=== PATIENT | female | born 1970 | race Caucasian/White ===

== ENCOUNTER 2020-02-19 17:08 | Emergency (ER) | payer BC ==
[~2020-02-19] VITALS: Ht 162.6 cm; Wt 94.8 kg
[2020-02-19] MEDS ORDERED: CYMBALTA60 MG PO (17:34)
[2020-02-19] MEDS ORDERED: LISINOPRIL-HCT1 EAC1 PO (17:34)
[2020-02-19] MEDS ORDERED: TOPAMAX100 MG PO (17:34)
[2020-02-19] MEDS ORDERED: ROBAXIN 750 MG750 MG PO (17:35)
[2020-02-19] MEDS ORDERED: OZEMPIC1 MG/0.75 SUBQ (17:47)
[2020-02-19 18:27] LABS: ABSOLUTE EOSINOPHILS 0.1 thou/uL (0.0-0.7); ABSOLUTE MONOCYTES 0.7 thou/uL (0.0-1.2); ABSOLUTE NEUTROPHILS 6.6 thou/uL (1.6-8.1); BASOPHILS 0.4 %; EOSINOPHILS 0.8 %; HEMATOCRIT 42.2 % (37.0-47.0); HEMOGLOBIN 14.2 gm/dL (12.0-15.0); MCH 29.6 pg (26.0-34.0); MCHC 33.6 g/dL (28.0-37.0); MCV 88.1 fL (80.0-100.0); MONOCYTES 6.7 %; MPV 7.4 fl. (7.2-11.1); NUCLEATED RBCS 0 /100WBC; PLATELET COUNT* 264 thou/uL (150-400); POLYS 63.1 %; RBC 4.79 mil/uL (4.20-5.00); RDW-CV 13.3 % (10.5-14.5); WBC 10.4 thou/uL (4.0-11.0)
[2020-02-19 18:33] LABS: INFLUENZA A ANTIGEN Negative (Negative); INFLUENZA B ANTIGEN Negative (Negative)
[2020-02-19 18:34] LABS: CALCIUM 9.6 mg/dL (8.5-10.1); CREATININE 0.6 mg/dL (0.6-1.3); POTASSIUM 3.4 mmol/L (3.5-5.1)
[2020-02-19 18:36] LABS: URIC ACID* 6.1 mg/dL (2.6-7.2)
[2020-02-19 19:32] LABS: ESR (SEDRATE) 14 mm/hr (0-20)
[2020-02-19] MEDS ORDERED: NORCO 5-325 TA1 EAC2 PO (19:47)
[2020-02-19] MEDS ORDERED: IBUPROFEN 800800 M1 PO (19:47)
[2020-02-19 20:01] VITALS: BP 133/81
== END 2020-02-19 20:02 | disposition home or self-care (01) ==
LOC: M.ERS 17:08
PROVIDERS: Nurse Practitioner Family
DX: M25.511 Pain in right shoulder (principal); M25.512 Pain in left shoulder; M25.521 Pain in right elbow; M25.522 Pain in left elbow; M25.561 Pain in right knee; M25.562 Pain in left knee; M25.571 Pain in right ankle and joints of right foot; M25.572 Pain in left ankle and joints of left foot; M79.641 Pain in right hand; M79.642 Pain in left hand; Z20.828 Contact with and (suspected) exposure to other viral communicable diseases; I10 Essential (primary) hypertension; G43.909 Migraine, unspecified, not intractable, without status migrainosus; Z98.890 Other specified postprocedural states

== ENCOUNTER 2020-04-20 11:53 | Emergency (ER) | payer BC ==
[~2020-04-20] VITALS: Ht 162.6 cm; Wt 102.1 kg
[~2020-04-20 11:53] MED LIST: CYMBALTA60 MG PO; IBUPROFEN 800800 M1 PO; LISINOPRIL-HCT1 EAC1 PO; NORCO 5-325 TA1 EAC2 PO; OZEMPIC1 MG/0.75 SUBQ; ROBAXIN 750 MG750 MG PO; TOPAMAX100 MG PO
[2020-04-20 13:25] VITALS: BP 149/77
== END 2020-04-20 13:25 | disposition home or self-care (01) ==
LOC: M.ERS 11:53
DX: G43.909 Migraine, unspecified, not intractable, without status migrainosus (principal); I10 Essential (primary) hypertension; Z98.890 Other specified postprocedural states

== ENCOUNTER 2021-04-19 22:38 | Emergency (ER) | payer BC ==
[~2021-04-19] VITALS: Ht 162.6 cm; Wt 106.6 kg
[2021-04-19 23:14] LABS: URINE BILIRUBIN NEGATIVE (Negative); URINE BLOOD NEGATIVE (Negative); URINE CLARITY CLEAR; URINE COLOR YELLOW; URINE GLUCOSE-RANDOM NEGATIVE (Negative); URINE KETONES NEGATIVE (Negative); URINE LEUKOCYTES-REFLEX NEGATIVE (Negative); URINE NITRITE-REFLEX NEGATIVE (Negative); URINE PROTEIN NEGATIVE (Negative); URINE SPECIFIC GRAVITY <= 1.005 (1.005-1.030); URINE UROBILINOGEN 0.2 E.U./dl (0.2-1.0)
[2021-04-19 23:27] LABS: ABSOLUTE BASOPHILS 0.1 thou/uL (0.0-0.2); ABSOLUTE EOSINOPHILS 0.1 thou/uL (0.0-0.7); ABSOLUTE LYMPHOCYTES 3.4 thou/uL (0.8-5.3); ABSOLUTE MONOCYTES 0.7 thou/uL (0.0-1.2); ABSOLUTE NEUTROPHILS 6.3 thou/uL (1.6-8.1); BASOPHILS 0.7 %; EOSINOPHILS 0.6 %; HEMATOCRIT 38.9 % (37.0-47.0); HEMOGLOBIN 13.2 gm/dL (12.0-15.0); LYMPHOCYTES 32.3 %; MCHC 33.9 g/dL (28.0-37.0); MCV 85.5 fL (80.0-100.0); MONOCYTES 6.4 %; MPV 7.6 fl. (7.2-11.1); NUCLEATED RBCS 0 /100WBC; PLATELET COUNT* 294 thou/uL (150-400); RBC 4.54 mil/uL (4.20-5.00); RDW-CV 13.3 % (10.5-14.5); WBC 10.4 thou/uL (4.0-11.0)
[2021-04-19 23:48] LABS: CALCIUM 8.8 mg/dL (8.5-10.1); CREATININE 0.7 mg/dL (0.6-1.3); POTASSIUM 3.3 mmol/L (3.5-5.1)
[2021-04-19 23:53] LABS: TOTAL BILIRUBIN 1.3 mg/dL (<0.1-1.0)
[2021-04-20] MEDS ORDERED: AUGMENTIN 500-1 EACH PO (01:33)
[2021-04-20] MEDS ORDERED: MEDROLDOSEPACK PO (01:33)
[2021-04-20 01:40] VITALS: BP 155/82
--- NOTE | 2021-04-20 12:34 | EKG ---
[place] [address] ELECTROCARDIOGRAM REPORT Name: RAGHAV GARCIA Room: [facility]#: [id number] Admission: 04/19/21 Attend Phys: Discharge: 04/20/21 Date of : 70 Date of Service: 04/19/21 2243 Report #: [id number] THIS REPORT FOR: //name// [facility] ED Test Date: 2021-04-19 Test Time: 22:43:19 Pat Name: RAGHAV GARCIA Department: Room: Gender: [employer] Operator: [facility] : 1970 Requested By: Marcelina Aguilar Order Number: [id number] MD: Srinivasan Padilla Measurements Intervals Switzer Rate: 69 P: 13 PA: 139 QRS: -9 QRSD: 93 T: 48 QT: 390 QTc: 418 Interpretive Statements Sinus rhythm Delayed R wave progression over the anterior precordium; consider anterior infarct No previous ECG available for comparison Electronically Signed On 04-20-2021 12:33:48 [employer] by Srinivasan Padilla [email or web address] <ELECTRONICALLY SIGNED> By: Srinivasan Padilla MD, [facility] 04/20/21 1233 2243 224 Srinivasan Padilla MD, [facility] /EPI
== END 2021-04-20 01:41 | disposition home or self-care (01) ==
LOC: M.ERS 22:38
PROVIDERS: Personal Emergency Response Attendant
DX: K11.21 Acute sialoadenitis (principal); R07.89 Other chest pain; I10 Essential (primary) hypertension; G43.909 Migraine, unspecified, not intractable, without status migrainosus; Z79.899 Other long term (current) drug therapy